=== PATIENT | female | born 1990 | race Two or more races ===

== ENCOUNTER 2017-02-09 23:22 | Emergency (ER) | payer MEDICAID ==
[~2017-02-09] VITALS: Ht 170.2 cm; Wt 76.2 kg
[2017-02-10 00:40] VITALS: BP 128/70
== END 2017-02-10 02:11 | disposition home or self-care (01) ==
LOC: ER 23:27
DX: M54.2 Cervicalgia (principal); R07.89 Other chest pain; R51 Headache; V49.49XA Driver injured in collision with other motor vehicles in traffic accident, initial encounter; Y93.89 Activity, other specified; Y99.8 Other external cause status; Y92.410 Unspecified street and highway as the place of occurrence of the external cause
CPT/HCPCS: 36415; 70450; 72125; 80320; 84702